=== PATIENT | male | born 1965 | race Caucasian/White ===

== ENCOUNTER 2017-05-21 14:19 | Emergency (ER) | payer BC, OTHER ==
[2017-05-21] MEDS ORDERED: KETOROLAC 60 MG/2 ML VIAL IM STA (15:10)
--- NOTE | 2017-05-21 15:11 | ED Physician Documentation ---
PD HPI Fall - Stated complaint Stated Complaint: FELL OFF LADDER - Chief complaint Chief Complaint: Ext Problem - History obtained from History obtained from: Patient, Family - History of Present Illness Mechanism of injury: Other (fell 7 feet off a ladder) Fall distance: 5 to 10ft Where injury occurred: Home Timing - onset: How many hours ago (1.5) Injury(ies) location: Right Upper Extremity, Left Uppper Extremity, Other (R ribs) Pain level max: 8 Pain level now: 4 Quality of pain: Pain, Aching, Dull Associated symptoms: No: LOC, AMS, Amnesia, Seizures, Ear drainage, Nasal drainage, Neck pain, Weakness, Paresthesias, Dyspnea, Nausea / vomiting Symptoms improve with: Rest, Meds (tylenol) Worsens with: Movement, Palpation Contributing factors: No: Anticoagulated, Intoxicated Recently seen: Not recently seen Review of Systems Constitutional: denies: Fever, Chills Ears: denies: Ear pain Nose: denies: Rhinorrhea / runny nose, Congestion Throat: denies: Sore throat Cardiac: denies: Chest pain / pressure Respiratory: denies: Cough GI: denies: Abdominal Pain, Nausea, Vomiting, Diarrhea Skin: denies: Rash Musculoskeletal: denies: Neck pain, Back pain Neurologic: denies: Headache PD PAST MEDICAL HISTORY - Past Medical History Past Medical History: Yes Cardiovascular: Hypertension, High cholesterol Respiratory: Other Neuro: None Endocrine/Autoimmune: None GI: None : None HEENT: Dental implants Psych: None Musculoskeletal: None Derm: None - Past Surgical History Past Surgical History: No - Present Medications Home Medications: Ambulatory Orders Medication Instructions Recorded Confirmed Losartan [Cozaar] 100 mg ORAL DAILY 03/29/14 05/21/17 Nebivolol HCl [Bystolic] 20 mg ORAL DAILY 03/29/14 05/21/17 Simvastatin 20 mg ORAL DAILY 03/29/14 05/21/17 Spironolactone 25 mg ORAL DAILY 03/29/14 05/21/17 Citalopram Hydrobromide [Celexa] 20 mg PO DAILY 01/24/15 05/21/17 Fluticasone Furoate [Veramyst] 10 gm NS DAILY 01/24/15 05/21/17 Dulaglutide [Trulicity] 0.75 mg SQ OAW 05/21/17 05/21/17 Hydrocodone/Acetaminophen 1 - 2 each PO Q6H PRN #14 tablet 05/21/17 [Hydrocodon-Acetaminophen 5-325] Metformin HCl 500 mg PO BID 05/21/17 05/21/17 - Allergies Allergies/Adverse Reactions: Allergies Allergy/AdvReac Type Severity Reaction Status Date / Time No Known Drug Allergies Allergy Verified 01/24/15 11:03 - Social History Does the pt smoke?: No Smoking Status: Former smoker - Immunizations Immunizations are current?: Yes PD ED PE NORMAL - Vitals Vital signs reviewed: Yes - General General: Alert and oriented X 3, No acute distress - HEENT HEENT: Atraumatic, PERRL, Moist mucous membranes - Neck Neck: Supple, no meningeal sign, No bony TTP - Cardiac Cardiac: RRR - Respiratory Respiratory: No respiratory distress, Clear bilaterally, Other (Tender palpation over the right lateral ribs, approximately 6 through 8. No crepitus. No ecchymosis. No abrasion) - Abdomen Abdomen: Soft, Non tender, Non distended - Back Back: No spinal TTP - Derm Derm: Warm and dry - Extremities Extremities: Other (Abrasions to the bilateral medial aspects of the elbows. Full range of motion, though with some pain. No pain with supination or pronation. Also the right third digit distal aspect has ecchymosis to the distal phalanx, no subungual hematoma. Normal nail. Neurovascularly intact. Otherwise normal exam of the extremities) - Neuro Neuro: Alert and oriented X 3 GCS Score: 15 - Psych Psych: Normal mood, Normal affect Results - Vitals Vitals: Vital Signs - 24 hr 05/21/17 05/21/17 14:30 16:37 Temperature 36.5 C Heart Rate 84 82 Respiratory 17 18 Rate Blood Pressure 154/92 H 141/88 H O2 Saturation 97 94 Oxygen O2 Source Room air - Rads (name of study) B elbow xray Radiology: Prelim report reviewed, EMP read contemporaneously, See rad report ( No acute bony abnormality or joint effusion on either side. ) R hand xray Radiology: Prelim report reviewed, EMP read contemporaneously, See rad report ( Normal hand radiography. ) R rib xray Radiology: Prelim report reviewed, EMP read contemporaneously, See rad report ( No rib abnormality identified. ) PD MEDICAL DECISION MAKING - ED course Complexity details: reviewed results, re-evaluated patient, considered differential, d/w patient, d/w family ED course: Patient is a 52-year-old male who presents to the emergency department after a fall off of a ladder today. No acute findings on x-ray. Pain well controlled. No spinal tenderness. No scalp abrasions. No evidence of intracranial hemorrhage or skull fracture that require repair. Will continue supportive care and follow-up with his doctor. Patient counseled regarding signs and symptoms for which I believe and urgent re-evaluation would be necessary. Patient with good understanding of and agreement to plan and is comfortable going home at this time This document was made in part using voice recognition software. While efforts are made to proofread this document, sound alike and grammatical errors may occur. Abdomen is soft, nontender nondistended on serial examination. Departure - Departure Disposition: 01 Home, Self Care Clinical Impression: Elbow contusion Qualifiers: Encounter type: initial encounter Laterality: unspecified laterality Qualified Code(s): S50.00XA - Contusion of unspecified elbow, initial encounter Contusion of rib on right side Qualifiers: Encounter type: initial encounter Qualified Code(s): S20.211A - Contusion of right front wall of thorax, initial encounter Condition: Good Instructions: ED Contusion Chest Wall, ED Contusion Soft Tissue Follow-Up: Sushil Stover MD [Primary Care Provider] - Within 1 week Prescriptions: Hydrocodone/Acetaminophen [Hydrocodon-Acetaminophen 5-325] 1 - 2 each PO Q6H PRN #14 tablet PRN Reason: pain Comments: Your x-rays are normal today. Return if you worsen. Discharge Date/Time: 05/21/17 16:38
[2017-05-21] MEDS ORDERED: KETOROLAC 30 MG/ML VIAL ONE (15:42)
--- NOTE | 2017-05-21 16:09 | XRAY Preliminary Report ---
Exam: XR Hand 3 View RT IMPRESSION: Normal hand radiography. [facility] SITE ID: [id number]
--- NOTE | 2017-05-21 16:12 | XRAY Preliminary Report ---
Exam: XR Ribs w/PA Chest RT IMPRESSION: No rib abnormality identified. [facility] SITE ID: [id number]
--- NOTE | 2017-05-21 16:12 | XRAY Report ---
EXAM: RIGHT HAND RADIOGRAPHY EXAM DATE: 05/21/2017 03:16 PM. CLINICAL HISTORY: Fall off ladder. Right hand pain. COMPARISON: None. TECHNIQUE: 3 views. FINDINGS: Bones: Normal. No fractures or bone lesions. Joints: Normal. No subluxations. Soft Tissues: Normal. No soft tissue swelling. IMPRESSION: Normal hand radiography. [facility] Referring Provider Line: [phone] SITE ID: [id number]
--- NOTE | 2017-05-21 16:14 | XRAY Report ---
EXAM: RIGHT RIB RADIOGRAPHY EXAM DATE: 05/21/2017 03:16 PM. CLINICAL HISTORY: Fall off ladder. Right posterior rib pain. COMPARISON: None. TECHNIQUE: 1 view of the chest and 4 views of the ribs. FINDINGS: Bones: Normal. No fracture or bone lesion. Lungs: Mild left base scarring/atelectasis, otherwise no focal opacities. No pneumothorax. No pleural effusions. Mediastinum: Heart and mediastinal contours are unremarkable. Other: None. IMPRESSION: No rib abnormality identified. [facility] Referring Provider Line: [phone] SITE ID: [id number]
--- NOTE | 2017-05-21 16:20 | XRAY Preliminary Report ---
Exam: XR Elbow 3 View BILAT IMPRESSION: No acute bony abnormality or joint effusion on either side. [facility] SITE ID: [id number]
--- NOTE | 2017-05-21 16:23 | XRAY Report ---
EXAM: 1. RIGHT ELBOW RADIOGRAPHY 2. LEFT ELBOW RADIOGRAPHY EXAM DATE: 05/21/2017 03:46 PM. CLINICAL HISTORY: Fall off ladder. Bilateral elbow pain. COMPARISON: None. TECHNIQUE: 3 views each elbow. FINDINGS: Right: Bones: No traumatic or destructive bone abnormalities. Olecranon tip enthesophyte noted. Joints: Normal. No effusion. No subluxation. Soft Tissues: Normal. No soft tissue swelling. Left: Bones: Normal. No fractures or bone lesions. Joints: Normal. No effusion. No subluxation. Soft Tissues: Medial soft tissue swelling. IMPRESSION: No acute bony abnormality or joint effusion on either side. [facility] Referring Provider Line: [phone] SITE ID: [id number]
[2017-05-21 16:39] VITALS: BP 141/88
== END 2017-05-21 16:38 | disposition home or self-care (01) ==
LOC: ED 14:19
DX: S50.00XA Contusion of unspecified elbow, initial encounter (principal); S20.211A Contusion of right front wall of thorax, initial encounter; W11.XXXA Fall on and from ladder, initial encounter; Y92.009 Unspecified place in unspecified non-institutional (private) residence as the place of occurrence of the external cause; I10 Essential (primary) hypertension; Z87.891 Personal history of nicotine dependence
CPT/HCPCS: 96372; 99283

== ENCOUNTER 2017-10-15 06:08 | Day surgery (SDC) | payer BC, OTHER ==
[2017-10-15] MEDS ORDERED: LACTATED RINGERS 1,000 ML IV ONE (06:57)
[2017-10-15] MEDS ORDERED: MIDAZOLAM 2 MG/2 ML VIAL IVP ONE (07:35)
[2017-10-15] MEDS ORDERED: fentaNYL 100 MCG/2 ML VIAL IVP ONE (07:35)
[2017-10-15 08:58] VITALS: BP 135/76
== END 2017-10-15 06:09 | disposition home or self-care (01) ==
LOC: SDS 06:08
PROVIDERS: ATTEND Surgery
PROC: 0DJD8ZZ Inspection of Lower Intestinal Tract, Via Natural or Artificial Opening Endoscopic (ICD-10-PCS; principal; 2017-10-15 07:30)
DX: Z12.11 Encounter for screening for malignant neoplasm of colon (principal); I10 Essential (primary) hypertension; E11.9 Type 2 diabetes mellitus without complications; E78.5 Hyperlipidemia, unspecified
CPT/HCPCS: 45378; J7120

== ENCOUNTER 2019-01-15 14:08 | Outpatient (CLI) | payer BC, OTHER ==
[2019-01-15 14:39] LABS: ALBUMIN 3.8 g/dL (3.2-5.5); ALBUMIN/GLOBULIN RATIO 1.1 (1.0-2.2); BILIRUBIN,TOTAL 0.6 mg/dL (0.2-1.0); CALCIUM 8.7 mg/dL (8.5-10.3); CREATININE 0.8 mg/dL (0.6-1.2); TOTAL PROTEIN 7.3 g/dL (6.7-8.2)
[2019-01-15] MEDS ORDERED: IOPAMIDOL-300 100 ML VIAL ONE (14:49)
[2019-01-15] MEDS ORDERED: IOPAMIDOL-300 100 ML VIAL IVP ONE (15:40)
--- NOTE | 2019-01-16 17:15 | CT Report ---
Reason: NECK MASS Procedure Date: 01/15/2019 Accession Number: [id number] / [id number] Procedure: CT - SOFT TISSUE NECK W CPT Code: FULL RESULT: EXAM: CT SOFT TISSUE NECK WITH CONTRAST. EXAM DATE: 01/15/2019 03:15 PM. HISTORY: Reported history of neck mass. COMPARISONS: None. TECHNIQUE: Routine soft tissue neck CT protocol. Reconstructions: Coronal and sagittal. IV contrast: 80 mL of Isovue-300. In accordance with CT protocol optimization, one or more of the following dose reduction techniques were utilized for this exam: automated exposure control, adjustment of mA and/or KV based on patient size, or use of iterative reconstructive technique. FINDINGS: A skin marker indicating the location of symptoms is placed on the skin overlying the left inferolateral parotid gland. A second radiopaque skin marker is placed over the right anterior neck just under the jaw at the level of the right submandibular gland. Soft tissue neck CT findings are unremarkable in the regions of these 2 separate markers, laterally on the left and anteriorly on the right. There is no evidence for an underlying abnormal fluid collection, space-occupying mass or abnormally-enlarged lymph node. No evidence for an acute inflammatory process or abscess. No evidence for a space-occupying mass in the neck or pathologically-enlarged cervical lymph node. Symmetric unremarkable appearance of the parotid and submandibular salivary glands. No focal thyroid lesion. Unremarkable contours of the pharynx and larynx without evidence for an asymmetric space-occupying enhancing mass or acute inflammatory process. Normal-appearing epiglottis. Symmetric vocal cords. No retropharyngeal or other prevertebral soft tissue thickening or infiltrate. Small left maxillary lobulated mucosal thickening or retention cyst. No other evidence for paranasal sinus or mastoid fluid opacity. Poor dentition, lucency is suggestive of dental decay in the left mandible are present. Minimal to mild degenerative changes in the cervical spinal column. IMPRESSION: 1. No CT evidence for an acute soft tissue abnormality, abscess, mass or adenopathy. 2. Unremarkable appearance of the soft tissues adjacent to the skin markers. 3. Poor-appearing dentition with apparent left mandibular dental decay. [facility]
== END 2019-01-15 14:09 | disposition home or self-care (01) ==
LOC: LAB 14:08 → DI 14:09
PROVIDERS: ATTEND Physician Assistant Medical
DX: R22.1 Localized swelling, mass and lump, neck (principal); E11.9 Type 2 diabetes mellitus without complications; K02.9 Dental caries, unspecified; D17.1 Benign lipomatous neoplasm of skin and subcutaneous tissue of trunk
CPT/HCPCS: 36415; 70491; 76604; 80053; Q9967

== ENCOUNTER 2019-01-15 14:30 | Outpatient (CLI) | payer BC, OTHER ==
--- NOTE | 2019-01-16 06:30 | Ultrasound Report ---
Reason: LIPOMA Procedure Date: 01/15/2019 Accession Number: [id number] / [id number] Procedure: US - Chest CPT Code: FULL RESULT: EXAM: ULTRASOUND OF THE CHEST EXAM DATE: 01/15/2019 04:07 PM. CLINICAL HISTORY: Lipoma. Multiple palpable anterior mid chest abnormalities for 18 years, increasing in size. COMPARISON: None. TECHNIQUE: Grayscale and color flow images are acquired. FINDINGS: Multiple patient described soft tissue lumps are measured below: 1. 1.5 x 0.6 x 2.2 cm 2. 2.0 x 0.8 x 2.9 cm 3. 1.7 x 0.9 x 1.6 cm 4. 1.6 x 0.7 x 1.5 cm 5. 3.2 x 1.1 x 3.6 cm At the patient-described area of palpable abnormality within the anterior chest, there are multiple subcutaneous abnormalities, largest of which measures 3.2 x 3.6 x 1.1 cm. IMPRESSION: At least 5 anterior subcutaneous lipomas are noted, largest of which measure 3.2 x 3.6 x 3.1 cm. [facility]
== END 2019-01-15 14:31 | disposition home or self-care (01) ==
LOC: DI 14:30
PROVIDERS: ATTEND Physician Assistant Medical
DX: D17.1 Benign lipomatous neoplasm of skin and subcutaneous tissue of trunk (principal)
CPT/HCPCS: 76604

== ENCOUNTER 2021-03-06 17:00 | Outpatient (CLI) | payer BC | END 2021-03-06 17:01 | disposition home or self-care (01) | LOC: COV 17:00 | PROVIDERS: ATTEND Family Medicine | DX: R50.9 Fever, unspecified (principal); R43.8 Other disturbances of smell and taste; Z20.822 Contact with and (suspected) exposure to COVID-19 ==

== ENCOUNTER 2021-07-30 13:08 | Outpatient (CLI) | payer BC | END 2021-07-30 13:09 | disposition home or self-care (01) | LOC: COV 13:08 | PROVIDERS: ATTEND Family Medicine | DX: Z20.822 Contact with and (suspected) exposure to COVID-19 (principal) ==

== ENCOUNTER 2021-08-24 08:00 | Outpatient (CLI) | payer BC ==
[2021-08-24 18:03] LABS: BASOPHILS # (AUTO) 0.1 10^3/uL (0.0-0.1); BASOPHILS % (AUTO) 0.7 %; EOSINOPHILS # (AUTO) 0.3 10^3/uL (0.0-0.7); EOSINOPHILS % (AUTO) 3.5 %; HCT - HEMATOCRIT 44.8 % (42.0-52.0); HGB - HEMOGLOBIN 15.2 g/dL (14.0-18.0); LYMPHOCYTES # (AUTO) 2.5 10^3/uL (1.5-3.5); LYMPHOCYTES % (AUTO) 34.5 %; MEAN CORPUSCULAR HEMOGLOBIN 30.9 pg (27.0-31.0); MEAN CORPUSCULAR HGB CONC 33.9 g/dL (32.0-36.0); MEAN CORPUSCULAR VOLUME 91.1 fL (80.0-94.0); MEAN PLATELET VOLUME 10.7 fL (7.4-11.4); MONOCYTES # (AUTO) 0.6 10^3/uL (0.0-1.0); MONOCYTES % (AUTO) 8.3 %; NEUTROPHILS # (AUTO) 3.8 10^3/uL (1.5-6.6); NEUTROPHILS % (AUTO) 52.7 %; PLT - PLATELET COUNT 301 10^3/uL (130-450); RED BLOOD COUNT 4.92 10^6/uL (4.70-6.10); RED CELL DISTRIBUTION WIDTH 13.9 % (12.0-15.0); WHITE BLOOD COUNT 7.2 x10^3/uL (4.8-10.8)
[2021-08-24 18:25] LABS: ALBUMIN 4.5 g/dL (3.2-5.5); ALBUMIN/GLOBULIN RATIO 1.2 (1.0-2.2); ALKALINE PHOSPHATASE 86 IU/L (42-121); ALT ALANINE AMINOTRANSFERASE 31 IU/L (10-60); AST ASPARTATE AMINOTRANSFERASE 25 IU/L (10-42); BILIRUBIN,TOTAL 0.5 mg/dL (0.2-1.0); BUN - BLOOD UREA NITROGEN 11 mg/dL (6-20); CALCIUM 9.3 mg/dL (8.5-10.3); CARBON DIOXIDE - CO2 28 mmol/L (21-32); CHLORIDE 102 mmol/L (101-111); CHOL/HDL RATIO 6.5 (<5.0); CHOLESTEROL 215 mg/dL; CREATININE 0.9 mg/dL (0.6-1.2); GFR - MDRD 88 (>89); GLUCOSE 95 mg/dL (70-100); HDL CHOLESTEROL 33 mg/dL; LDL CHOLESTEROL,CALCULATED 142 mg/dL; LDL/HDL RATIO 4.3 (<3.6); POTASSIUM 3.5 mmol/L (3.5-5.0); SODIUM 139 mmol/L (135-145); TOTAL PROTEIN 8.2 g/dL (6.7-8.2); TRIGLYCERIDES 201 mg/dL; VLDL CHOLESTEROL 40 mg/dL
[2021-08-24 18:29] LABS: THYROID STIMULATING HORMONE 5.21 uIU/mL (0.34-5.60)
[2021-08-24 18:37] LABS: CREATININE,URINE 90.2 mg/dL; MICROALBUMIN,URINE 9.2 mg/dL (0-300.0)
[2021-08-24 20:30] LABS: ESTIMATED AVERAGE GLUCOSE 151 mg/dL (70-100); HEMOGLOBIN A1c% 6.9 % (4.27-6.07)
== END 2021-08-24 23:59 | disposition home or self-care (01) ==
LOC: LAB.WCP 08:00
PROVIDERS: ATTEND Physician Assistant Medical
DX: Z00.00 Encounter for general adult medical examination without abnormal findings (principal); E78.5 Hyperlipidemia, unspecified; E11.9 Type 2 diabetes mellitus without complications; Z12.5 Encounter for screening for malignant neoplasm of prostate
CPT/HCPCS: 36415; 80053; 80061; 82043; 82570; 83036; 83721; 84153; 84443; 85025

== ENCOUNTER 2021-10-12 17:00 | Outpatient (CLI) | payer BC ==
[2021-10-12 21:14] LABS: CALCIUM 9.5 mg/dL (8.5-10.3); POTASSIUM 3.9 mmol/L (3.5-5.0)
== END 2021-10-12 23:59 | disposition home or self-care (01) ==
LOC: LAB.N 17:00
PROVIDERS: ATTEND Physician Assistant
DX: I10 Essential (primary) hypertension (principal)
CPT/HCPCS: 36415; 80048

== ENCOUNTER 2021-11-23 09:10 | Outpatient (CLI) | payer BC ==
[2021-11-23 12:57] LABS: CALCIUM 8.9 mg/dL (8.5-10.3); CREATININE 1.1 mg/dL (0.6-1.2); POTASSIUM 4.1 mmol/L (3.5-5.0)
[2021-11-23 14:58] LABS: ESTIMATED AVERAGE GLUCOSE 157 mg/dL (70-100); HEMOGLOBIN A1c% 7.1 % (4.27-6.07)
== END 2021-11-23 09:11 | disposition home or self-care (01) ==
LOC: LAB.N 09:10
PROVIDERS: ATTEND Physician Assistant Medical
DX: E11.9 Type 2 diabetes mellitus without complications (principal)
CPT/HCPCS: 36415; 80048; 83036

== ENCOUNTER 2022-02-01 07:53 | Outpatient (CLI) | payer BC ==
[2022-02-01 08:04] LABS: BASOPHILS % (AUTO) 0.6 %; EOSINOPHILS # (AUTO) 0.2 10^3/uL (0.0-0.7); EOSINOPHILS % (AUTO) 3.3 %; HCT - HEMATOCRIT 42.8 % (42.0-52.0); HGB - HEMOGLOBIN 14.8 g/dL (14.0-18.0); LYMPHOCYTES # (AUTO) 2.3 10^3/uL (1.5-3.5); LYMPHOCYTES % (AUTO) 32.2 %; MEAN CORPUSCULAR HEMOGLOBIN 31.1 pg (27.0-31.0); MEAN CORPUSCULAR HGB CONC 34.6 g/dL (32.0-36.0); MEAN CORPUSCULAR VOLUME 89.9 fL (80.0-94.0); MEAN PLATELET VOLUME 10.1 fL (7.4-11.4); MONOCYTES # (AUTO) 0.6 10^3/uL (0.0-1.0); NEUTROPHILS # (AUTO) 3.8 10^3/uL (1.5-6.6); NEUTROPHILS % (AUTO) 54.8 %; PLT - PLATELET COUNT 289 10^3/uL (130-450); RED BLOOD COUNT 4.76 10^6/uL (4.70-6.10); RED CELL DISTRIBUTION WIDTH 13.2 % (12.0-15.0)
[2022-02-01 08:29] LABS: CHOL/HDL RATIO 3.8 (<5.0); CHOLESTEROL 119 mg/dL; HDL CHOLESTEROL 31 mg/dL; LDL CHOLESTEROL,CALCULATED 65 mg/dL; LDL/HDL RATIO 2.1 (<3.6); TRIGLYCERIDES 116 mg/dL; VLDL CHOLESTEROL 23 mg/dL
[2022-02-01 08:41] LABS: THYROID STIMULATING HORMONE 3.91 uIU/mL (0.34-5.60)
== END 2022-02-01 07:54 | disposition home or self-care (01) ==
LOC: LAB 07:53
PROVIDERS: ATTEND Nurse Practitioner Family
DX: E78.5 Hyperlipidemia, unspecified (principal); R53.83 Other fatigue
CPT/HCPCS: 36415; 80061; 83721; 84443; 85025

== ENCOUNTER 2024-03-16 07:53 | Outpatient (CLI) | payer BC ==
[2024-03-16 08:25] LABS: CREATININE 1.2 mg/dL (0.6-1.3)
== END 2024-03-16 07:54 | disposition home or self-care (01) ==
LOC: LAB 07:53
PROVIDERS: ATTEND Physician Assistant Medical
DX: R20.2 Paresthesia of skin (principal); H53.9 Unspecified visual disturbance
CPT/HCPCS: 36415; 82565

== ENCOUNTER 2024-03-17 07:58 | Outpatient (CLI) | payer BC ==
[~2024-03-17 07:58] MED LIST: GADOTERATE MEGLUMINE 10 MMOL/20 ML VIAL ONE; GADOTERATE MEGLUMINE 5 MMOL/10 ML VIAL ONE
[2024-03-17] MEDS: GADOTERATE MEGLUMINE 10 MMOL/20 ML VIAL IVP ONE (14:38)
[2024-03-17] MEDS: GADOTERATE MEGLUMINE 5 MMOL/10 ML VIAL IVP ONE (14:39)
--- NOTE | 2024-03-17 19:45 | MRI Report ---
PROCEDURE: MRI brain with and without contrast INDICATIONS: VISUAL CHANGES, FACIAL PARESTHIA TECHNIQUE: Multiplanar multisequential MR images of the brain were obtained before and after intrave nous contrast administration. COMPARISON: None. FINDINGS: CSF spaces: Basal cisterns are patent. No extra-axial fluid collections. Ventricles are normal in size and shape. Brain: No midline shift. No intracranial bleeds or masses. No abnormal intracranial enhancement. The brainstem appears normal. Diffusion-weighted images demonstrate no acute infarct. Normal intrav ascular flow voids are present. Old lacunar infarct noted in the right basal ganglia Skull and face: Calvarial marrow is normal in signal. Orbits appear normal. Sinuses: Sinuses and mastoids appear clear. IMPRESSION: Old right basal ganglia lacunar infarct Reviewed by: Cesar Hayes MD on 03/17/2024 6:43 PM [facility] Approved by: Cesar Hayes MD on 03/17/2024 6:43 PM [facility] Station ID: [id number]
== END 2024-03-17 07:59 | disposition home or self-care (01) ==
LOC: DI 07:58
PROVIDERS: ATTEND Physician Assistant Medical
DX: R20.2 Paresthesia of skin (principal); H53.9 Unspecified visual disturbance; R90.89 Other abnormal findings on diagnostic imaging of central nervous system
CPT/HCPCS: 70553; A9575

== ENCOUNTER 2024-03-23 16:08 | Outpatient (CLI) | payer BC ==
--- NOTE | 2024-03-24 15:53 | Ultrasound Report ---
PROCEDURE: Carotid Doppler Complete INDICATIONS: VISUAL CHANGES, FACIAL PARESTHIA TECHNIQUE: Color and pulse Doppler interrogation was performed of both carotid systems, with image documentation and velocity measurements. COMPARISON: None. FINDINGS: Right side: Brachial blood pressure: 159/83 mm Hg. Common carotid artery peak systolic velocity: 85 cm/sec. Internal carotid artery peak systolic velocity: 124 cm/sec. Internal carotid artery end diastolic velocity: 34 cm/sec. External carotid artery peak systolic velocity: 161 cm/sec. ICA/CCA peak systolic ratio: 1.9 . Butler scale imaging description: Significant plaque Percent internal carotid artery stenosis: Less than 50% stenosis, approaching 50-69%. Vertebral artery: Flow direction is antegrade. Left side: Brachial blood pressure: 145/80 mm Hg. Common carotid artery peak systolic velocity: 80 cm/sec. Internal carotid artery peak systolic velocity: 114 cm/sec. Internal carotid artery end diastolic velocity: 39 cm/sec. External carotid artery peak systolic velocity: 145 cm/sec. ICA/CCA peak systolic ratio: 1.4 . Butler scale imaging description: Significant plaque Percent internal carotid artery stenosis: Less than 50 percent stenosis. Vertebral artery: Flow direction is antegrade. IMPRESSION: 1. In the right internal carotid artery, there is less than 50% stenosis, approaching 50-69% based on peak systolic velocity criteria. 2. In the left internal carotid artery, there is less than 50% based on peak systolic velocity criter ia. 3. Antegrade blood flow within the right vertebral artery. 4. Antegrade blood flow within the left vertebral artery. The estimate of stenosis included in the report of the imaging study was calculated using the [facility]-end orsed standards of carotid artery stenosis. Reviewed by: Kerry Hummel MD on 03/24/2024 3:51 PM PDT Approved by: Kerry Hummel MD on 03/24/2024 3:51 PM PDT Station ID: [id number]
== END 2024-03-23 16:09 | disposition home or self-care (01) ==
LOC: DI 16:08
PROVIDERS: ATTEND Physician Assistant Medical
DX: I65.23 Occlusion and stenosis of bilateral carotid arteries (principal)
CPT/HCPCS: 93880